=== PATIENT | male | born 1995 | race Hispanic/Latino ===

== ENCOUNTER 2020-07-05 20:21 | Emergency (ER) | payer SELFPAY ==
--- NOTE | 2020-07-05 21:23 | ER ---
Nurse's Notes [facility] Name: Landon Chanel Age: 25 yrs Sex: Male : 1995 Arrival Date: 07/05/2020 Time: 20:24 Bed 25 [facility] MD: Diagnosis: Allergic contact dermatitis Presentation: 07/05 20:49 Chief complaint: Patient states: Rash with itching to body since Thursday. States he ll1 sprayed cologne on that day. No new foods/medications. Coronavirus screen: Client denies travel out of the [place] in the last 14 days. At this time, the client does not indicate any symptoms associated with coronavirus-19. Ebola Screen: Patient denies travel to an Ebola-affected area in the 21 days before illness onset. 20:49 Method Of Arrival: Ambulatory ll1 20:51 Onset: The symptoms/episode began/occurred 3 day(s) ago. Anaphylaxis evaluation, no ll1 signs or symptoms of anaphylaxis were noted. Initial Sepsis Screen: Does the patient meet any 2 criteria? No. Patient's initial sepsis screen is negative. Does the patient have a suspected source of infection? Yes: Skin breakdown/wound. Risk Assessment: Do you want to hurt yourself or someone else? Patient reports no desire to harm self or others. Onset of symptoms was June 05, 2020. 20:51 Acuity: STEFFANY 4 ll1 Historical: - Allergies: 20:52 No Known Allergies; ll1 - PMHx: 20:52 None; ll1 - PSHx: 20:52 None; ll1 - Immunization history:: Flu vaccine is not up to date. - Social history:: Smoking status: Patient reports the use of cigarette tobacco products, denies chronic smoking, but will smoke occasionally. Screenin:04 Abuse screen: Denies threats or abuse. Nutritional screening: No deficits noted. vg1 Tuberculosis screening: No symptoms or risk factors identified. Fall Risk No fall in past 12 months (0 pts). No secondary diagnosis (0 pts). No IV (0 pts). Ambulatory Aid- None/Bed Rest/Nurse Assist (0 pts). Gait- Normal/Bed Rest/Wheelchair (0 pts) Mental Status- Oriented to own ability (0 pts). Total Wilson Fall Scale indicates No Risk (0-24 pts). Assessment: 21:02 General: Appears in no apparent distress. comfortable, Behavior is calm, cooperative. vg1 Pain: Denies pain. Neuro: Level of Consciousness is awake, alert, obeys commands, Oriented to person, place, time, situation. Cardiovascular: Patient's skin is warm and dry. Respiratory: Airway is patent Respiratory effort is even, unlabored, Respiratory pattern is regular, symmetrical, Breath sounds are clear bilaterally. GI: No signs and/or symptoms were reported involving the gastrointestinal system. : No signs and/or symptoms were reported regarding the genitourinary system. EENT: No signs and/or symptoms were reported regarding the EENT system. Derm: Rash noted that is itchy, red, raised, urticaria. Musculoskeletal: Circulation, motion, and sensation intact. Vital Signs: 20:49 BP 157 / 80; Pulse 89; Resp 16; Temp 98.1; Pulse Ox 97% ; Weight 81.65 kg; Height 5 ft. ll1 11 in. (180.34 cm); Pain 0/10; 21:04 BP 141 / 74; Pulse 90; Resp 16; Pulse Ox 100% on R/A; vg1 20:49 Body Mass Index 25.10 (81.65 kg, 180.34 cm) ll1 ED Course: 20:24 Patient arrived in ED. cl3 20:51 Triage completed. ll1 20:52 Arm band placed on Patient placed. ll1 20:56 Raghu Quintanilla MD is Attending Physician. kimberly 20:58 Mari Schrader, RN is Primary Nurse. vg1 21:04 Patient has correct armband on for positive identification. Bed in low position. Call vg1 light in reach. 21:43 No provider procedures requiring assistance completed. Patient did not have IV access vg1 during this emergency room visit. Administered Medications: 21:42 Drug: predniSONE 60 mg Route: PO; vg1 21:43 Follow up: Response: Medication administered at discharge. vg1 21:43 Drug: Pepcid 40 mg Route: PO; vg1 21:43 Follow up: Response: Medication administered at discharge. vg1 21:43 Drug: Atarax 50 mg Route: PO; vg1 21:43 Follow up: Response: Medication administered at discharge. vg1 Outcome: 21:22 Discharge ordered by . kimberly 21:43 Discharged to home ambulatory. vg1 21:43 Condition: stable 21:43 Discharge instructions given to patient, Instructed on discharge instructions, follow up and referral plans. medication usage, Demonstrated understanding of instructions, follow-up care, medications, Prescriptions given X 3. 21:44 Patient left the ED. vg1 Signatures: Raghu Quintanilla MD MD cha Lewis, Charde cl3 Mari Schrader, RN RN vg1 Sherri Rajan RN RN ll1
--- NOTE | 2020-07-05 21:23 | EDPHYS ---
Physician Documentation [facility] Name: Landon Chanel Age: 25 yrs Sex: Male : 1995 Arrival Date: 07/05/2020 Time: 20:24 Bed 25 Private MD: KONRAD Physician Raghu Quintanilla HPI: 07/05 21:17 This 25 yrs old Male presents to ER via Ambulatory with complaints of Allergic kimberly Reaction. 21:17 The patient presents with rash, redness of skin. Onset: The symptoms/episode kimberly began/occurred 3 day(s) ago. Associated signs and symptoms: The patient has no apparent associated signs or symptoms. Possible causes: The patient has no known obvious cause for the symptoms. At home the patient or guardian has treated the symptoms with Benadryl. Severity of symptoms: At their worst the symptoms were mild in the emergency department the symptoms are unchanged. The patient has not experienced similar symptoms in the past. Historical: - Allergies: 20:52 No Known Allergies; ll1 - PMHx: 20:52 None; ll1 - PSHx: 20:52 None; ll1 - Immunization history:: Flu vaccine is not up to date. - Social history:: Smoking status: Patient reports the use of cigarette tobacco products, denies chronic smoking, but will smoke occasionally. ROS: 21:18 Constitutional: Negative for fever, chills, and weight loss, Eyes: Negative for injury, kimberly pain, redness, and discharge, ENT: Negative for injury, pain, and discharge, Neck: Negative for injury, pain, and swelling, Cardiovascular: Negative for chest pain, palpitations, and edema, Respiratory: Negative for shortness of breath, cough, wheezing, and pleuritic chest pain, Abdomen/GI: Negative for abdominal pain, nausea, vomiting, diarrhea, and constipation, Back: Negative for injury and pain, : Negative for injury, bleeding, discharge, and swelling, MS/Extremity: Negative for injury and deformity, Neuro: Negative for headache, weakness, numbness, tingling, and seizure, Psych: Negative for depression, anxiety, suicide ideation, homicidal ideation, and hallucinations, Allergy/Immunology: Negative for hives, rash, and allergies, Endocrine: Negative for neck swelling, polydipsia, polyuria, polyphagia, and marked weight changes, Hematologic/Lymphatic: Negative for swollen nodes, abnormal bleeding, and unusual bruising. 21:18 Skin: Positive for rash, diffusely. Exam: 21:18 Constitutional: This is a well developed, well nourished patient who is awake, alert, kimberly and in no acute distress. Head/Face: Normocephalic, atraumatic. Eyes: Pupils equal round and reactive to light, extra-ocular motions intact. Lids and lashes normal. Conjunctiva and sclera are non-icteric and not injected. Cornea within normal limits. Periorbital areas with no swelling, redness, or edema. ENT: Nares patent. No nasal discharge, no septal abnormalities noted. Tympanic membranes are normal and external auditory canals are clear. Oropharynx with no redness, swelling, or masses, exudates, or evidence of obstruction, uvula midline. Mucous membranes moist. Neck: Trachea midline, no thyromegaly or masses palpated, and no cervical lymphadenopathy. Supple, full range of motion without nuchal rigidity, or vertebral point tenderness. No Meningismus. Chest/axilla: Normal chest wall appearance and motion. Nontender with no deformity. No lesions are appreciated. Cardiovascular: Regular rate and rhythm with a normal S1 and S2. No gallops, murmurs, or rubs. Normal PMI, no JVD. No pulse deficits. Respiratory: Lungs have equal breath sounds bilaterally, clear to auscultation and percussion. No rales, rhonchi or wheezes noted. No increased work of breathing, no retractions or nasal flaring. Abdomen/GI: Soft, non-tender, with normal bowel sounds. No distension or tympany. No guarding or rebound. No evidence of tenderness throughout. Back: No spinal tenderness. No costovertebral tenderness. Full range of motion. Male : Normal genitalia with no discharge or lesions. MS/ Extremity: Pulses equal, no cyanosis. Neurovascular intact. Full, normal range of motion. Neuro: Awake and alert, GCS 15, oriented to person, place, time, and situation. Cranial nerves II-XII grossly intact. Motor strength 5/5 in all extremities. Sensory grossly intact. Cerebellar exam normal. Normal gait. Psych: Awake, alert, with orientation to person, place and time. Behavior, mood, and affect are within normal limits. 21:18 Skin: Appearance: Color: normal in color, Temperature: normal temperature, Moisture: dry, petechiae, not noted, ecchymosis, not noted, flushing, not noted, diaphoresis is not appreciated, abscess, not appreciated, cellulitis, is not appreciated, induration, is not appreciated, injury, is not appreciated. Vital Signs: 20:49 BP 157 / 80; Pulse 89; Resp 16; Temp 98.1; Pulse Ox 97% ; Weight 81.65 kg; Height 5 ft. ll1 11 in. (180.34 cm); Pain 0/10; 21:04 BP 141 / 74; Pulse 90; Resp 16; Pulse Ox 100% on R/A; vg1 20:49 Body Mass Index 25.10 (81.65 kg, 180.34 cm) ll1 MDM: 20:56 Patient medically screened. kimberly 21:20 Differential diagnosis: foreign body or airway obstruction Hereditary Angioedema kimberly urticaria. Data reviewed: vital signs, nurses notes. 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 Counseling: I had a detailed discussion with the patient and/or guardian regarding: the historical points, exam findings, and any diagnostic results supporting the discharge/admit diagnosis, the need for outpatient follow up, for definitive care, a family practitioner. Administered Medications: 21:42 Drug: predniSONE 60 mg Route: PO; vg1 21:43 Follow up: Response: Medication administered at discharge. vg1 21:43 Drug: Pepcid 40 mg Route: PO; vg1 21:43 Follow up: Response: Medication administered at discharge. vg1 21:43 Drug: Atarax 50 mg Route: PO; vg1 21:43 Follow up: Response: Medication administered at discharge. vg1 Disposition: 07/05/20 21:22 Discharged to Home. Impression: Allergic contact dermatitis. - Condition is Stable. - Discharge Instructions: Contact Dermatitis, Hives, Contact Dermatitis, [id number], Hives, [id number]. - Prescriptions for Hydroxyzine HCl 50 mg Oral Tablet - take 1 tablet by ORAL route every 8 hours As needed; 20 tablet. Pepcid 20 mg Oral Tablet - take 1 tablet by ORAL route every 12 hours for 10 days; 20 tablet. Prednisone 20 mg Oral Tablet - take 2 tablet by ORAL route once daily for 5 days; 10 tablet. - Medication Reconciliation Form, Thank You Letter, Antibiotic Education, Prescription Opioid Use form. - Follow up: Private Physician; When: 2 - 3 days; Reason: Recheck today's complaints, Continuance of care, Re-evaluation by your physician. - Problem is new. - Symptoms have improved. Signatures: Raghu Quintanilla MD MD cha Garcia, Victoria, RN RN vg1 Sherri Rajan RN RN ll1 Corrections: (The following items were deleted from the chart) 21:44 21:22 07/05/2020 21:22 Discharged to Home. Impression: Allergic contact dermatitis. vg1 Condition is Stable. Forms are Medication Reconciliation Form, Thank You Letter, Antibiotic Education, Prescription Opioid Use. Follow up: Private Physician; When: 2 - 3 days; Reason: Recheck today's complaints, Continuance of care, Re-evaluation by your physician. Problem is new. Symptoms have improved. kimberly
[2020-07-05] MEDS ORDERED: FAMOTIDINE 20 MG TAB ONE (21:53)
[2020-07-05] MEDS ORDERED: predniSONE 20 MG TAB ONE (21:53)
[2020-07-05] MEDS ORDERED: hydrOXYzine HCL 25 MG TAB ONE (21:53)
[2020-07-05 23:10] VITALS: TEMP 98.1
[2020-07-05 23:11] VITALS: BP 141/74; O2SAT 100
== END 2020-07-05 21:44 | disposition home or self-care (01) ==
LOC: ER 20:21
DX: L23.9 Allergic contact dermatitis, unspecified cause (principal); F17.210 Nicotine dependence, cigarettes, uncomplicated
CPT/HCPCS: 99283; J7512

== ENCOUNTER 2022-06-28 19:52 | Emergency (ER) | payer SELFPAY ==
--- OUTSIDE RECORDS SUMMARY | 2022-06-28 19:54 | XMS REPORT | Continuity of Care Document ---
:1995 Author Organization [facility] t Address [address] [place] [address] Care Team Providers Name Role Phone Jason Dial Attending Clinician Unavailable Payers Payer Name Policy Type Policy Number Effective Date Expiration Date S masoud [facility] 6 [id number] 2021 Common Sp[facility] t [employer] of 00:00:00 - [facility] Problems Condition Condition Condition Status Onset Resolution Last Treating Co mments Source Name Details Category Date Date Treatment Clinician Date [id number] VESTA Problem Active Common (generaliz Spirit ed anxiety - [facility] disorder) [facility] [id number] Tobacco Problem Active Commo n use Spirit disorder - [facility] [id number] Moderate Problem Active Commo n major Spirit depression - [facility] , single 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 Allergies, Adverse Reactions, Alerts This patient has no known allergies or adverse reactions. Social History Social Habit Start Date Stop Date Quantity Comments Source History of Tobacco Current Smoker Co mmon [facility] - [facility] Use [facility] Sex Assigned At Com mon [facility] - [facility] Smoking Status Start Date Stop Date Source Current Smoker 2021-06-08 00:00:00 Common Spiri t - [facility] Medications Ordered Filled Start Stop Current Ordering Indication Dosage Frequency Signature Comments Components Source Medication Medication Date Date Medication? Clinician (SIG) Name Name hydrOXYzine hydrOXYzine No 1{table TID hydrOXYzin HCl 25 MG HCl 25 MG t_as_ne e HCl 25 eded} MG busPIRone busPIRone No 1{table QD busPIRone HCl 5 MG HCl 5 MG t} HCl 5 MG Sertraline Sertraline No QD Sertraline HCl 100 MG HCl 100 MG HCl 100 MG hydrOXYzine hydrOXYzine No 1{table TID hydrOXYzin HCl 25 MG HCl 25 MG t_as_ne e HCl 25 eded} MG busPIRone busPIRone No 1{table QD busPIRone HCl 5 MG HCl 5 MG t} HCl 5 MG Sertraline Sertraline No QD Sertraline HCl 100 MG HCl 100 MG HCl 100 MG busPIRone busPIRone No 1{table QD HCl 5 MG HCl 5 MG t} busPIRone busPIRone No 1{table QD busPIRone HCl 5 MG HCl 5 MG t} HCl 5 MG busPIRone busPIRone No 1{table QD busPIRone HCl 5 MG HCl 5 MG t} HCl 5 MG busPIRone busPIRone No 1{table HCl 5 MG HCl 5 MG t} busPIRone busPIRone No busPIRone HCl 5 MG HCl 5 MG HCl 5 MG busPIRone busPIRone No busPIRone HCl 5 MG HCl 5 MG HCl 5 MG Immunizations Ordered Immunization Filled Immunization Date Status Commen ts Source Name Name Alvarouria Afluria 2021-02-18 Completed [facility] 11:46:00 - [facility] Afluria Afluria 2021-02-18 Completed [facility] 11:46:00 [facility] Afluria Afluria 2021-02-18 Completed [facility] 11:46:00 [facility] Afluria Afluria 2021-02-18 Completed [facility] 11:46:00 - [facility] Afluria Afluria 2021-02-18 Completed [facility] 11:46:00 - [facility] Afluria Afluria 2021-02-18 Completed [facility] 11:46:00 [facility] Afluria Afluria 2021-02-18 Completed [facility] 11:46:00 [facility] Afluria Afluria 2021-02-18 Completed [facility] 11:46:00 [facility] Vital Signs Vital Name Observation Time Observation Value Comments Source height 2021-06-28 11:20:00 71 [in_i] [facility] weight 2021-06-28 11:20:00 176 [lb_av] [facility] temperature 2021-06-28 11:20:00 98 [degF] [facility] bmi 2021-06-28 11:20:00 24.54 kg/m2 [facility] height 2021-03-06 09:40:00 71 [in_i] [facility] weight 2021-03-06 09:40:00 178 [lb_av] [facility] temperature 2021-03-06 09:40:00 98 [degF] [facility] bmi 2021-03-06 09:40:00 24.82 kg/m2 [facility] height 2021-02-18 11:00:00 71 [in_i] [facility] weight 2021-02-18 11:00:00 177.4 [lb_av] [facility] temperature 2021-02-18 11:00:00 97.9 [degF] [facility] bmi 2021-02-18 11:00:00 24.74 kg/m2 [facility] oximetry 2021-02-18 11:00:00 99 % [facility] respiratory rate 2021-02-18 11:00:00 16 /min Comm on [facility] blood pressure 2021-02-18 11:00:00 138 mm[Hg] Common [facility] - systolic [facility] blood pressure 2021-02-18 11:00:00 75 mm[Hg] [facility] - diastolic [facility] Procedures This patient has no known procedures. Encounters Start End Encounter Admission Attending Care Care Encounter Source Date/Time Date/Time Type Type Clinicians Facility Department ID 2022-06-20 Outpatient Dial, STLMLC STLMLC [id number] Common 09:47:01 Jason [id number] [facility] 2022-06-19 Outpatient Dial, STLMLC STLMLC [id number] Common 14:31:01 Jason [id number] [facility] 2021-05-29 Outpatient Dial, STLMLC STLMLC [id number] Common 14:14:02 Jason [id number] [facility] 2021-05-29 Outpatient Dial, STLMLC STLMLC [id number] Common 14:01:41 Jason [id number] [facility] 2021-07-24 2021-07-24 (WEB) STLMLC STLMLC [id number] Co mmon 00:00:00 00:00:00 [facility] 2021-06-28 2021-06-28 OFFICE STLMLC STLMLC [id number] Co mmon 00:00:00 00:00:00 VISIT EST Spir it PT LEVEL 3 [facility] 2021-05-01 2021-05-01 (WEB) STLMLC STLMLC [id number] Co mmon 00:00:00 00:00:00 [facility] 2021-04-19 2021-04-19 (TEL) STLMLC STLMLC [id number] Co mmon 00:00:00 00:00:00 [facility] 2021-04-17 2021-04-17 (WEB) STLMLC STLMLC [id number] Co mmon 00:00:00 00:00:00 [facility] 2021-03-06 2021-03-06 OFFICE STLMLC STLMLC [id number] Co mmon 00:00:00 00:00:00 VISIT EST Spir it PT LEVEL 3 [facility] 2021-02-25 2021-02-25 (TEL) STLMLC STLMLC [id number] Co mmon 00:00:00 00:00:00 [facility] 2021-02-18 2021-02-18 PREV VISIT [facility] [id number] Common 00:00:00 00:00:00 NEW AGE Spirit 18-39 - [facility] Results This patient has no known results.
[2022-06-28] MEDS ORDERED: FAMOTIDINE 20 MG/2 ML VIAL IV ONE (20:22)
[2022-06-28] MEDS ORDERED: CETIRIZINE HCL 5 MG TABLET ONE (20:22)
[2022-06-28] MEDS ORDERED: dexAMETHasone 10 MG/ML VIAL ONE (20:22)
[2022-06-28] MEDS ORDERED: NA CHLORIDE 0.9% 1,000 ML ONE (20:22)
[2022-06-28 20:43] LABS: Absolute Lymphocytes (CBC) 3.1 K/uL (0.7-4.9); Hematocrit 45.8 % (39.6-49.0); MCV 86.7 fL (80-100); RBC Red Blood Cell Count 5.28 M/uL (4.33-5.43)
[2022-06-28 20:59] LABS: Albumin 3.5 g/dL (3.4-5.0); Bilirubin Total 0.4 mg/dL (0.2-1.0); C-Reactive Protein 14.1 mg/L (<3.00); Potassium 3.6 mmol/L (3.5-5.1); Protein, Total 6.9 g/dL (6.4-8.2)
--- NOTE | 2022-06-28 22:07 | EDPHYS ---
Physician Documentation [facility] Name: Landon Schrader Age: 27 yrs Sex: Male : 1995 Arrival Date: 06/28/2022 Time: 19:53 Bed 13 Private MD: ED Physician Waqas Rausch HPI: 06/28 20:13 This 27 yrs old Male presents to ER via Ambulatory with complaints of Hives. snw 20:13 The patient's rash thought to be caused by an unknown cause. The rash is located on the snw body diffusely. The rash can be described as diffuse, erythematous, urticarial. Onset: The symptoms/episode began/occurred suddenly. Severity of symptoms: At their worst the symptoms were moderate severe. The patient has experienced a previous episode. The patient has been recently seen by a physician: the patient's primary care provider, Dr. Dial. Historical: - Allergies: 20:02 No Known Allergies; ll3 - Home Meds: 20:02 Buspirone Oral as needed [Active]; ll3 - PMHx: 20:02 Anxiety; Asthma; ll3 - PSHx: 20:02 None; ll3 - Immunization history:: Client reports receiving the 2nd dose of the Covid vaccine. - Social history:: Smoking status: Patient denies any tobacco usage or history of. ROS: 20:12 Constitutional: Negative for fever, chills, and weight loss, Eyes: Negative for injury, snw pain, redness, and discharge, ENT: Negative for injury, pain, and discharge, Neck: Negative for injury, pain, and swelling, Cardiovascular: Negative for chest pain, palpitations, and edema, Respiratory: Negative for shortness of breath, cough, wheezing, and pleuritic chest pain, Abdomen/GI: Negative for abdominal pain, nausea, vomiting, diarrhea, and constipation, Back: Negative for injury and pain, : Negative for injury, bleeding, discharge, and swelling, MS/Extremity: Negative for injury and deformity, Neuro: Negative for headache, weakness, numbness, tingling, and seizure, Psych: Negative for depression, anxiety, suicide ideation, homicidal ideation, and hallucinations. 20:12 Skin: Positive for rash, diffusely. Exam: 20:09 Constitutional: This is a well developed, well nourished patient who is awake, alert, snw and in no acute distress. 20:09 Eyes: Pupils equal round and reactive to light, extra-ocular motions intact. Lids and lashes normal. Conjunctiva and sclera are non-icteric and not injected. Cornea within normal limits. Periorbital areas with no swelling, redness, or edema. 20:09 Neck: Trachea midline, no thyromegaly or masses palpated, and no cervical lymphadenopathy. Supple, full range of motion without nuchal rigidity, or vertebral point tenderness. No Meningismus. Chest/axilla: Normal chest wall appearance and motion. Nontender with no deformity. No lesions are appreciated. Cardiovascular: Regular rate and rhythm with a normal S1 and S2. No gallops, murmurs, or rubs. Normal PMI, no JVD. No pulse deficits. Respiratory: Lungs have equal breath sounds bilaterally, clear to auscultation and percussion. No rales, rhonchi or wheezes noted. No increased work of breathing, no retractions or nasal flaring. Abdomen/GI: Soft, non-tender, with normal bowel sounds. No distension or tympany. No guarding or rebound. No evidence of tenderness throughout. Back: No spinal tenderness. No costovertebral tenderness. Full range of motion. MS/ Extremity: Pulses equal, no cyanosis. Neurovascular intact. Full, normal range of motion. Neuro: Awake and alert, GCS 15, oriented to person, place, time, and situation. Cranial nerves II-XII grossly intact. Motor strength 5/5 in all extremities. Sensory grossly intact. Cerebellar exam normal. Normal gait. Psych: Awake, alert, with orientation to person, place and time. Behavior, mood, and affect are within normal limits. 20:09 Head/face: Noted is rash, of the generalized face. 20:09 ENT: Mouth: is normal, Posterior pharynx: erythema, that is mild, that is moderate, Voice: is normal. 20:09 Skin: Appearance: Color: flushed, rash a moderate rash is noted, rash can be described as urticarial, and is diffusely located. Vital Signs: 20:00 BP 153 / 91; Pulse 86; Resp 17; Temp 98.6(O); Pulse Ox 99% on R/A; Weight 81.65 kg (R); ll3 Height 5 ft. 11 in. (180.34 cm) (R); Pain 0/10; 20:30 BP 143 / 88; Pulse 76; Resp 18; Pulse Ox 100% on R/A; eh3 21:15 BP 139 / 68; Pulse 76; Resp 18; Pulse Ox 100% on R/A; eh3 22:15 BP 133 / 76; Pulse 78; Resp 18; Pulse Ox 99% on R/A; eh3 20:00 Body Mass Index 25.10 (81.65 kg, 180.34 cm) 3 MDM: 19:58 Patient medically screened. snw 20:10 Differential diagnosis: bacterial infection, allergic or viral urticaria. Data snw reviewed: vital signs, nurses notes, lab test result(s). I considered the following discharge prescriptions or medication management in the emergency department Medications were administered in the Emergency Department. See MAR. Counseling: I had a detailed discussion with the patient and/or guardian regarding: the historical points, exam findings, and any diagnostic results supporting the discharge/admit diagnosis, the presence of at least one elevated blood pressure reading (>120/80) during this emergency department visit, the need for outpatient follow up, for definitive care. Awaiting: labs results. ED course: Pt has no new meds, contacts, foods, etc. Pt has had URI s/s x a few days. Pt has had one previous experience with urticaria without known causation. . 22:06 Response to treatment: the patient's symptoms have markedly improved after treatment, snw patient is well hydrated. and as a result, I will discharge patient. 06/28 20:09 Order name: CBC with Diff; Complete Time: 20:55 snw 06/28 20:09 Order name: CMP; Complete Time: 21:00 snw 06/28 20:09 Order name: CRP; Complete Time: 21:00 snw 06/28 20:09 Order name: Strep; Complete Time: 20:55 snw 06/28 20:56 Order name: Throat Culture EDMS Administered Medications: 20:30 Drug: Pepcid (famotidine) 20 mg Route: IVP; Site: right antecubital; 3 21:58 Follow up: Response: Marked relief of symptoms eh3 20:30 Drug: Decadron - Dexamethasone 10 mg Route: IVP; Site: right antecubital; 3 21:58 Follow up: Response: Marked relief of symptoms eh3 20:30 Drug: ZyrTEC - Cetirizine 10 mg Route: PO; 3 21:58 Follow up: Response: No adverse reaction 3 20:30 Drug: NS 0.9% 1000 ml Route: IV; Rate: 1 bolus; Site: right antecubital; 3 21:58 Follow up: IV Status: Completed infusion; IV Intake: 1000ml 3 Disposition Summary: 06/28/22 22:06 Discharge Ordered Location: Home snw Condition: Stable snw Diagnosis - Allergic urticaria snw Followup: snw - With: Emergency Department - When: As needed - Reason: Worsening of condition Followup: snw - With: Private Physician - When: 2 - 3 days - Reason: Recheck today's complaints, Continuance of care, Re-evaluation by your physician Discharge Instructions: - Discharge Summary Sheet snw - Allergies, Adult snw - Hives snw - Rehydration, Adult snw Forms: - Medication Reconciliation Form snw - Thank You Letter snw - Antibiotic Education snw - Prescription Opioid Use snw - Work release form snw Prescriptions: - Zyrtec 10 mg Oral Tablet - take 1 tablet by ORAL route once daily As needed; 20 tablet; Refills: 0, snw Product Selection Permitted - Prednisone 20 mg Oral Tablet - take 2 tablets by ORAL route once daily for 5 days; 10 tablet; Refills: 0, snw Product Selection Permitted - Pepcid 20 mg Oral Tablet - take 1 tablet by ORAL route once daily; 20 tablet; Refills: 0, Product snw Selection Permitted Signatures: Dispatcher [employer] Sabrina Danielle FNP-C CREDIT OFFICE MANAGER-Harleenw Zeenat Holm, RN RN 3 Tiffanie Miller, RN RN eh3
--- NOTE | 2022-06-28 22:07 | ER ---
Nurse's Notes [facility] Name: Landon Schrader Age: 27 yrs Sex: Male : 1995 Arrival Date: 06/28/2022 Time: 19:53 Bed 13 Private MD: Diagnosis: Allergic urticaria Presentation: 06/28 20:00 Chief complaint: Patient states: C/o a head to toe itchy rash. Coronavirus screen: ll3 Vaccine status: Patient reports receiving the 2nd dose of the covid vaccine. At this time, the client does not indicate any symptoms associated with coronavirus-19. Ebola Screen: No symptoms or risks identified at this time. Onset: The symptoms/episode began/occurred yesterday. Anaphylaxis evaluation, no signs or symptoms of anaphylaxis were noted. Initial Sepsis Screen: Does the patient meet any 2 criteria? No. Patient's initial sepsis screen is negative. Does the patient have a suspected source of infection? No. Patient's initial sepsis screen is negative. Risk Assessment: Do you want to hurt yourself or someone else? Patient reports no desire to harm self or others. Onset of symptoms was June 27, 2022. 20:00 Method Of Arrival: Ambulatory ll3 20:00 Acuity: STEFFANY 3 ll3 Historical: - Allergies: 20:02 No Known Allergies; ll3 - Home Meds: 20:02 Buspirone Oral as needed [Active]; ll3 - PMHx: 20:02 Anxiety; Asthma; ll3 - PSHx: 20:02 None; ll3 - Immunization history:: Client reports receiving the 2nd dose of the Covid vaccine. - Social history:: Smoking status: Patient denies any tobacco usage or history of. Screenin:[address] [facility] ED Fall Risk Assessment (Adult) Score/Fall Risk Level 0 - 2 = Low Risk. Abuse eh3 screen: Denies threats or abuse. Denies injuries from another. Nutritional screening: No deficits noted. Tuberculosis screening: No symptoms or risk factors identified. Assessment: 20:15 General: Appears in no apparent distress. uncomfortable, Behavior is calm, cooperative, eh3 appropriate for age. Pain: Denies pain. Neuro: Level of Consciousness is awake, alert, obeys commands, Oriented to person, place, time, situation. Cardiovascular: Capillary refill < 3 seconds Patient's skin is warm and dry. Respiratory: Airway is patent Respiratory effort is even, unlabored, Respiratory pattern is regular, symmetrical, Breath sounds are clear bilaterally. GI: Abdomen is round non-distended. : No signs and/or symptoms were reported regarding the genitourinary system. EENT: Throat is reddened. Derm: Rash noted that is red, raised, on generalized. Musculoskeletal: Circulation, motion, and sensation intact. Range of motion: intact in all extremities. 21:15 Reassessment: Patient appears in no apparent distress at this time. Patient and/or eh3 family updated on plan of care and expected duration. Pain level reassessed. Patient is alert, oriented x 3, equal unlabored respirations, skin warm/dry/pink. Vital Signs: 20:00 BP 153 / 91; Pulse 86; Resp 17; Temp 98.6(O); Pulse Ox 99% on R/A; Weight 81.65 kg (R); ll3 Height 5 ft. 11 in. (180.34 cm) (R); Pain 0/10; 20:30 BP 143 / 88; Pulse 76; Resp 18; Pulse Ox 100% on R/A; eh3 21:15 BP 139 / 68; Pulse 76; Resp 18; Pulse Ox 100% on R/A; eh3 22:15 BP 133 / 76; Pulse 78; Resp 18; Pulse Ox 99% on R/A; eh3 20:00 Body Mass Index 25.10 (81.65 kg, 180.34 cm) 3 ED Course: 19:53 Patient arrived in ED. mr 19:55 Sabrina Nixon FNP-C [facility]. snw 19:55 Waqas Rausch MD is Attending Physician. snw 20:01 Triage completed. 3 20:02 Arm band placed on Patient placed in an exam room, on a stretcher, on pulse oximetry. 3 20:14 Tiffanie Miller, DARLING is Primary Nurse. 3 20:15 Patient has correct armband on for positive identification. Bed in low position. Call [facility] light in reach. Side rails up X2. Pulse ox on. NIBP on. Door closed. Noise minimized. Lights dimmed. Warm blanket given. Pillow given. 20:30 Inserted saline lock: 20 gauge in right antecubital area, using aseptic technique. 3 Blood collected. Administered Medications: 20:30 Drug: Pepcid (famotidine) 20 mg Route: IVP; Site: right antecubital; eh3 21:58 Follow up: Response: Marked relief of symptoms eh3 20:30 Drug: Decadron - Dexamethasone 10 mg Route: IVP; Site: right antecubital; eh3 21:58 Follow up: Response: Marked relief of symptoms eh3 20:30 Drug: ZyrTEC - Cetirizine 10 mg Route: PO; eh3 21:58 Follow up: Response: No adverse reaction eh3 20:30 Drug: NS 0.9% 1000 ml Route: IV; Rate: 1 bolus; Site: right antecubital; eh3 21:58 Follow up: IV Status: Completed infusion; IV Intake: 1000ml eh3 Intake: 21:58 IV: 1000ml; Total: 1000ml. 3 Outcome: 22:06 Discharge ordered by MD. thompson 22:17 Patient left the ED. 3 Signatures: Sabrina Nixon, BEBA STORE PROTECTION SPECIALIST-Johanna Escudero [place], RN RN 3 Tiffanie Miller RN RN 3 Corrections: (The following items were deleted from the chart) 22:13 21:15 BP 139 / 58; Pulse 76bpm; Resp 18bpm; Pulse Ox 100% RA; 3 3
[2022-06-28 22:22] VITALS: TEMP 98.6
[2022-06-28 22:23] VITALS: O2SAT 100
[2022-06-28 22:24] VITALS: BP 139/68
== END 2022-06-28 22:17 | disposition home or self-care (01) ==
LOC: ER 19:52
DX: L50.0 Allergic urticaria (principal)
CPT/HCPCS: 36415; 80053; 85025; 86140; 87070; 87081; 96361; 96374; 96375; 99284; J1100; J7030